=== PATIENT | female | born 1935 | race American Indian/Alaskan Native ===

== ENCOUNTER 2018-05-25 13:37 | Outpatient (CLI) | payer MEDICARE, MEDICAID ==
[~2018-05-25 13:37] MED LIST: BENZ-16 PO
[2018-05-25] MEDS ORDERED: LIDOcaine 1% 30ml preserv. free vial ONE (13:39)
[2018-05-25] MEDS ORDERED: LIDOcaine 1%/PF 5ML 10 MG/ML VIAL ONE (13:47)
[2018-05-25 14:02] VITALS: BP 165/79
== END 2018-05-25 15:00 | disposition home or self-care (01) ==
LOC: ORTHO 13:37
PROVIDERS: ATTEND Nurse Practitioner Family
DX: S52.532A Colles' fracture of left radius, initial encounter for closed fracture (principal)
CPT/HCPCS: 25600; 73110; 99214; J2001; J3490

== ENCOUNTER 2018-06-05 13:45 | Outpatient (CLI) | payer MEDICARE, MEDICAID ==
[2018-06-05 13:41] VITALS: BP 134/78
== END 2018-06-05 14:33 | disposition home or self-care (01) ==
LOC: ORTHO 13:45
PROVIDERS: ATTEND Nurse Practitioner Family
DX: S52.592G Other fractures of lower end of left radius, subsequent encounter for closed fracture with delayed healing (principal); S52.615G Nondisplaced fracture of left ulna styloid process, subsequent encounter for closed fracture with delayed healing; F17.210 Nicotine dependence, cigarettes, uncomplicated; W01.0XXD Fall on same level from slipping, tripping and stumbling without subsequent striking against object, subsequent encounter
CPT/HCPCS: 73110

== ENCOUNTER 2018-06-12 13:05 | Outpatient (CLI) | payer MEDICARE, MEDICAID ==
[2018-06-12 13:05] VITALS: BP 126/89
== END 2018-06-12 13:43 | disposition home or self-care (01) ==
LOC: ORTHO 13:05
PROVIDERS: ATTEND Nurse Practitioner Family
DX: S52.572G Other intraarticular fracture of lower end of left radius, subsequent encounter for closed fracture with delayed healing (principal); S52.692D Other fracture of lower end of left ulna, subsequent encounter for closed fracture with routine healing; F17.210 Nicotine dependence, cigarettes, uncomplicated; K21.9 Gastro-esophageal reflux disease without esophagitis; Z88.6 Allergy status to analgesic agent; Z88.8 Allergy status to other drugs, medicaments and biological substances; W01.0XXD Fall on same level from slipping, tripping and stumbling without subsequent striking against object, subsequent encounter
CPT/HCPCS: 73110; 99213

== ENCOUNTER 2018-06-19 15:29 | Outpatient (CLI) | payer MEDICARE, MEDICAID ==
[2018-06-19 15:28] VITALS: BP 151/83
== END 2018-06-19 16:13 | disposition home or self-care (01) ==
LOC: ORTHO 15:29
PROVIDERS: ATTEND Nurse Practitioner Family
DX: S52.592G Other fractures of lower end of left radius, subsequent encounter for closed fracture with delayed healing (principal); S52.612G Displaced fracture of left ulna styloid process, subsequent encounter for closed fracture with delayed healing; F17.210 Nicotine dependence, cigarettes, uncomplicated; K21.9 Gastro-esophageal reflux disease without esophagitis; Z79.82 Long term (current) use of aspirin; Z88.8 Allergy status to other drugs, medicaments and biological substances; W01.0XXD Fall on same level from slipping, tripping and stumbling without subsequent striking against object, subsequent encounter
CPT/HCPCS: 73110; 99213; A4590

== ENCOUNTER → 2018-07-03 15:00 | Outpatient (CLI) | payer MEDICARE, MEDICAID | END | disposition home or self-care (01) | LOC: ORTHO 15:00 | PROVIDERS: ATTEND Nurse Practitioner Family | DX: S52.592G Other fractures of lower end of left radius, subsequent encounter for closed fracture with delayed healing (principal); S52.692G Other fracture of lower end of left ulna, subsequent encounter for closed fracture with delayed healing; K21.9 Gastro-esophageal reflux disease without esophagitis; F17.210 Nicotine dependence, cigarettes, uncomplicated; Z88.6 Allergy status to analgesic agent; Z88.8 Allergy status to other drugs, medicaments and biological substances; W01.0XXD Fall on same level from slipping, tripping and stumbling without subsequent striking against object, subsequent encounter | CPT/HCPCS: 73110; 99213 ==

== ENCOUNTER 2018-07-26 13:58 | Outpatient (CLI) | payer MEDICARE, MEDICAID | END 2018-07-26 14:19 | disposition home or self-care (01) | LOC: ORTHO 13:58 | PROVIDERS: ATTEND Orthopaedic Surgery | DX: S52.592G Other fractures of lower end of left radius, subsequent encounter for closed fracture with delayed healing (principal); S52.692G Other fracture of lower end of left ulna, subsequent encounter for closed fracture with delayed healing; Z88.6 Allergy status to analgesic agent; Z88.8 Allergy status to other drugs, medicaments and biological substances; W01.0XXD Fall on same level from slipping, tripping and stumbling without subsequent striking against object, subsequent encounter | CPT/HCPCS: 73110; 99213 ==

== ENCOUNTER 2018-12-04 12:16 | Emergency (ER) | payer MEDICARE, MEDICAID ==
[~2018-12-04] VITALS: Ht 154.9 cm; Wt 85.0 kg
[2018-12-04 12:33] VITALS: BP 131/71
[2018-12-04] MEDS ORDERED: HYDR-4353 PO (13:38)
== END 2018-12-04 14:26 | disposition home or self-care (01) ==
LOC: ER 12:17
DX: S62.397A Other fracture of fifth metacarpal bone, left hand, initial encounter for closed fracture (principal); S62.395A Other fracture of fourth metacarpal bone, left hand, initial encounter for closed fracture; K21.9 Gastro-esophageal reflux disease without esophagitis; G89.29 Other chronic pain; Z88.6 Allergy status to analgesic agent; Z88.8 Allergy status to other drugs, medicaments and biological substances; Z79.899 Other long term (current) drug therapy; Z90.49 Acquired absence of other specified parts of digestive tract; Z98.890 Other specified postprocedural states; W01.0XXA Fall on same level from slipping, tripping and stumbling without subsequent striking against object, initial encounter; Y93.89 Activity, other specified; Y92.89 Other specified places as the place of occurrence of the external cause; Y99.8 Other external cause status
CPT/HCPCS: 29125; 73110; 99284

== ENCOUNTER 2018-12-28 11:50 | Outpatient (CLI) | payer MEDICARE, MEDICAID | END 2018-12-28 12:41 | disposition home or self-care (01) | LOC: ORTHO 11:50 | PROVIDERS: ATTEND Orthopaedic Surgery | DX: S62.395D Other fracture of fourth metacarpal bone, left hand, subsequent encounter for fracture with routine healing (principal); S62.397D Other fracture of fifth metacarpal bone, left hand, subsequent encounter for fracture with routine healing; Z87.891 Personal history of nicotine dependence; X58.XXXD Exposure to other specified factors, subsequent encounter | CPT/HCPCS: 73110; G0463 ==

== ENCOUNTER → 2019-09-30 | Emergency (ER) | payer MEDICARE, MEDICAID ==
[~2019-09-30] VITALS: Ht 180.3 cm; Wt 83.6 kg
[~2019-09-30] MED LIST changes: +CEPH500C5 PO; +MUPI22OI30 TP; +ZINC113C10 TOP; +mupirocin 2% cream 15gm TP SCH; +mupirocin 2% ointment 22GM TP ONE
[2019-09-30 08:23] VITALS: BP 128/54
== END | disposition home or self-care (01) ==
LOC: ER 08:20
DX: L97.828 Non-pressure chronic ulcer of other part of left lower leg with other specified severity (principal); L97.818 Non-pressure chronic ulcer of other part of right lower leg with other specified severity; L03.116 Cellulitis of left lower limb; L03.115 Cellulitis of right lower limb; K21.9 Gastro-esophageal reflux disease without esophagitis; F17.200 Nicotine dependence, unspecified, uncomplicated; G89.29 Other chronic pain; Z90.49 Acquired absence of other specified parts of digestive tract; Z98.890 Other specified postprocedural states; Z88.6 Allergy status to analgesic agent; Z88.8 Allergy status to other drugs, medicaments and biological substances; Z79.899 Other long term (current) drug therapy
CPT/HCPCS: 99283

== ENCOUNTER 2020-05-09 11:34 | Emergency (ER) | payer MEDICARE, MEDICAID ==
[~2020-05-09] VITALS: Ht 154.9 cm; Wt 80.9 kg
[~2020-05-09 11:34] MED LIST changes: -MUPI22OI30 TP; -mupirocin 2% cream 15gm TP SCH; -mupirocin 2% ointment 22GM TP ONE
[2020-05-09 13:06] LABS: BASOPHILS % (AUTO) 0.1 % (0-1); EOSINOPHILS % (AUTO) 0 % (0-6); HEMATOCRIT 34.7 % (35.0-45.0); HEMOGLOBIN 11.2 g/dl (12.0-16.0); LYMPHOCYTES # (AUTO) 0.3 X10'3 (1.1-4.8); LYMPHOCYTES % (AUTO) 2.3 % (21-51); MEAN CORPUSCULAR HEMOGLOBIN 27.7 PG (27.0-31.0); MEAN CORPUSCULAR HGB CONC 32.4 g/dL (33.0-36.5); MEAN CORPUSCULAR VOLUME 85.4 FL (78-98); MEAN PLATELET VOLUME 8.9 FL (7.4-10.4); MONOCYTES # (AUTO) 0.6 X10'3 (0-0.9); MONOCYTES % (AUTO) 4.2 % (2-12); NEUTROPHILS % (AUTO) 93.4 % (42-75); PLATELET COUNT 250 X10'3 (140-440); RED BLOOD COUNT 4.06 X10'6 (4.20-5.60); RED CELL DISTRIBUTION WIDTH 13.9 % (11.5-14.5)
--- NOTE | 2020-05-09 13:08 | NUR ---
[facility] [phone]
[2020-05-09 13:27] LABS: ALANINE AMINOTRANSFERASE 15 U/L (12-78); ALBUMIN 2.6 G/DL (3.4-5.0); ALBUMIN/GLOBULIN RATIO 0.5 (1.1-1.5); ALKALINE PHOSPHATASE 102 IU/L (46-116); ANION GAP 9 (8-16); ASPARTATE AMINO TRANSFERASE 19 U/L (10-37); BILIRUBIN,TOTAL 0.2 MG/DL (0.1-1.0); BLOOD UREA NITROGEN 21 MG/DL (7-18); BUN/CREATININE RATIO 12.9 (6.6-38.0); CHLORIDE 103 MMOL/L (99-107); CREATININE 1.63 MG/DL (0.40-0.90); GLUCOSE 139 MG/DL (70-104); POTASSIUM 4.7 MMOL/L (3.5-5.1); SODIUM 133 MMOL/L (135-145); TOTAL PROTEIN 7.9 G/DL (6.4-8.2); eGFR 30 ML/MIN
[2020-05-09 14:07] LABS: D-DIMER 0.94 MG/L FEU (0-0.50)
[2020-05-09 14:16] LABS: C-REACTIVE PROTEIN 4.23 MG/DL (0.0-0.5); FERRITIN 232 NG/ML (8-252); LACTATE DEHYDROGENASE 224 U/L (81-234)
[2020-05-09 14:39] VITALS: BP 144/88
== END 2020-05-09 14:44 | disposition left against medical advice (07) ==
LOC: ER 11:35
DX: U07.1 COVID-19 (principal); R06.02 Shortness of breath; R05 Cough; R06.2 Wheezing; K21.9 Gastro-esophageal reflux disease without esophagitis; Z87.01 Personal history of pneumonia (recurrent); Z90.89 Acquired absence of other organs; Z98.890 Other specified postprocedural states; Z88.8 Allergy status to other drugs, medicaments and biological substances; Z79.2 Long term (current) use of antibiotics; Z79.899 Other long term (current) drug therapy
CPT/HCPCS: 36415; 71045; 80053; 82728; 83615; 83880; 84145; 84484; 85025; 85379; 85384; 86140; 87635; 93005; 99285; C9803

== ENCOUNTER 2021-09-21 07:17 | Inpatient (IN) | payer MEDICARE, MEDICAID ==
[~2021-09-21] VITALS: Ht 154.9 cm; Wt 83.6 kg
[~2021-09-21 07:17] MED LIST changes: -CEPH500C5 PO
[2021-09-21] MEDS ORDERED: morphine 4 MG/ML inj SYRINge IV ONE (09:30)
[2021-09-21] MEDS ORDERED: ondansetron/PF 4mg/2ml inj IV ONE (09:30)
[2021-09-21 10:05] LABS: BASOPHILS % (AUTO) 0.2 % (0-1); EOSINOPHILS % (AUTO) 0.5 % (0-6); HEMATOCRIT 40.6 % (35.0-45.0); HEMOGLOBIN 13.2 g/dl (12.0-16.0); LYMPHOCYTES # (AUTO) 1.1 X10'3 (1.1-4.8); MEAN CORPUSCULAR HEMOGLOBIN 28.2 PG (27.0-31.0); MEAN CORPUSCULAR HGB CONC 32.4 g/dL (33.0-36.5); MEAN CORPUSCULAR VOLUME 86.8 FL (78-98); MEAN PLATELET VOLUME 10.2 FL (7.4-10.4); MONOCYTES # (AUTO) 0.5 X10'3 (0-0.9); MONOCYTES % (AUTO) 4.8 % (2-12); NEUTROPHILS # (AUTO) 8.6 X10'3 (1.8-7.7); NEUTROPHILS % (AUTO) 83.5 % (42-75); PLATELET COUNT 182 X10'3 (140-440); RED BLOOD COUNT 4.68 X10'6 (4.20-5.60); RED CELL DISTRIBUTION WIDTH 14.7 % (11.5-14.5); WHITE BLOOD COUNT 10.3 X10'3 (4.5-11.0)
[2021-09-21 10:11] LABS: APTT 27 SECONDS (22-32)
[2021-09-21 10:12] LABS: ALANINE AMINOTRANSFERASE 13 U/L (12-78); ALBUMIN 3.5 G/DL (3.4-5.0); ALBUMIN/GLOBULIN RATIO 0.8 (1.1-1.5); ALKALINE PHOSPHATASE 182 IU/L (46-116); ANION GAP 9 (8-16); ASPARTATE AMINO TRANSFERASE 16 U/L (10-37); BILIRUBIN,TOTAL 0.3 MG/DL (0.1-1.0); BLOOD UREA NITROGEN 37 MG/DL (7-18); BUN/CREATININE RATIO 17.1 (6.6-38.0); CALCIUM 8.4 MG/DL (8.5-10.1); CHLORIDE 107 MMOL/L (99-107); CREATININE 2.16 MG/DL (0.40-0.90); POTASSIUM 5.4 MMOL/L (3.5-5.1); SODIUM 139 MMOL/L (135-145); eGFR 22 ML/MIN
[2021-09-21 10:18] LABS: GLUCOSE 118 MG/DL (70-104)
[2021-09-21] MEDS ORDERED: acetaminophen 325mg tablet PO PRN (11:05)
[2021-09-21] MEDS ORDERED: magnesium hydroxide 30ml (MOM) UD suspension PO PRN (11:05)
[2021-09-21] MEDS ORDERED: ondansetron/PF 4mg/2ml inj IV PRN (11:05)
[2021-09-21] MEDS ORDERED: mag hydrox/Alum hydrox/simeth 30ml oral suspension PO PRN (11:05)
[2021-09-21] MEDS ORDERED: hydrALAZINE 20mg/ml inj. IV PRN (11:35)
[2021-09-21] MEDS ORDERED: FURO20TA4 PO (11:50)
[2021-09-21] MEDS ORDERED: LISI5TAB22 PO (11:51)
[2021-09-21] MEDS ORDERED: FLUT16SP2 BOTHNARES (11:56)
[2021-09-21] MEDS ORDERED: CETI-90 PO (11:56)
[2021-09-21] MEDS ORDERED: LEVO50TA8 PO (11:56)
[2021-09-21] MEDS ORDERED: OMEP20TA43 PO (11:56)
[2021-09-21] MEDS: normal saline 1000ml 1,000 ML IV SCH ×2 (12:00→22:09)
[2021-09-21 13:50] LABS: CLARITY,URINE CLEAR (Clear); COLOR,URINE YELLOW (Yellow); GLUCOSE, URINE NEGATIVE (Neg); KETONES,URINE NEGATIVE (Neg); LEUKOCYTE ESTERASE ,URINE NEGATIVE (Neg); NITRITES, URINE NEGATIVE (Neg); OCCULT BLOOD,URINE TRACE-INTACT (Neg); PROTEIN,URINE TRACE mg/dl (Neg); UROBILINOGEN,URINE 0.2 E.U/dL (0.2-1.0)
[2021-09-21 13:52] LABS: UA COLLECTION TYPE FOLEY CATH
[2021-09-21 13:56] LABS: BACTERIA,URINE 1+ /HPF (Neg); MUCUS STRANDS NONE SEEN /LPF (Neg); RBC,URINE 0-2 /HPF (0-2); SQUAMOUS EPITHELIAL CELL,UR FEW /LPF (FEW); WBC,URINE 0-4 /HPF (0-4)
[2021-09-21] MEDS: morphine 2 MG/ML inj. syringe IV PRN (19:19)
[2021-09-21 19:46] VITALS: BP 115/55
[2021-09-21] MEDS: docusate sod 100mg capsule PO SCH (20:06)
[2021-09-21 22:00] VITALS: BP 113/65
[2021-09-22] VITALS (25 sets, daily range): BP systolic 98–131; BP diastolic 39–70
[2021-09-22] MEDS: morphine 2 MG/ML inj. syringe IV PRN ×3 (01:39→17:25)
--- NOTE | 2021-09-22 06:15 | NUR ---
Problems reprioritized. Patient report given, questions answered & plan of care reviewed with PAUL MEEHAN.
--- NOTE | 2021-09-22 06:31 | NUR ---
Patient in room ORTHO 4012. I have received report from Elise MILLER and had the opportunity to ask questions and assume patient care.
[2021-09-22 06:54] LABS: BASOPHILS % (AUTO) 0.3 % (0-1); EOSINOPHILS % (AUTO) 0.4 % (0-6); HEMATOCRIT 36.2 % (35.0-45.0); HEMOGLOBIN 11.7 g/dl (12.0-16.0); LYMPHOCYTES # (AUTO) 1.2 X10'3 (1.1-4.8); LYMPHOCYTES % (AUTO) 13.2 % (21-51); MEAN CORPUSCULAR HEMOGLOBIN 28.4 PG (27.0-31.0); MEAN CORPUSCULAR HGB CONC 32.4 g/dL (33.0-36.5); MEAN CORPUSCULAR VOLUME 87.6 FL (78-98); MEAN PLATELET VOLUME 10.5 FL (7.4-10.4); MONOCYTES # (AUTO) 0.8 X10'3 (0-0.9); MONOCYTES % (AUTO) 8.3 % (2-12); NEUTROPHILS # (AUTO) 7.3 X10'3 (1.8-7.7); NEUTROPHILS % (AUTO) 77.8 % (42-75); PLATELET COUNT 154 X10'3 (140-440); RED BLOOD COUNT 4.13 X10'6 (4.20-5.60); RED CELL DISTRIBUTION WIDTH 14.8 % (11.5-14.5); WHITE BLOOD COUNT 9.4 X10'3 (4.5-11.0)
[2021-09-22 07:26] LABS: ANION GAP 11 (8-16); BLOOD UREA NITROGEN 33 MG/DL (7-18); BUN/CREATININE RATIO 17.1 (6.6-38.0); CALCIUM 8.2 MG/DL (8.5-10.1); CHLORIDE 112 MMOL/L (99-107); CREATININE 1.93 MG/DL (0.40-0.90); GLUCOSE 105 MG/DL (70-104); POTASSIUM 5.6 MMOL/L (3.5-5.1); SODIUM 143 MMOL/L (135-145); TOTAL CARBON DIOXIDE 19.8 MMOL/L (24-32); eGFR 25 ML/MIN
[2021-09-22] MEDS: levoTHYROXINE 100mcg tablet PO SCH (07:42)
[2021-09-22] MEDS: cetirizine 10mg tablet PO SCH (07:43)
[2021-09-22] MEDS: docusate sod 100mg capsule PO SCH ×2 (07:43→19:34)
[2021-09-22] MEDS: pantoprazole 40mg Tablet.DR PO SCH (07:43)
[2021-09-22] MEDS: normal saline 1000ml 1,000 ML IV SCH ×2 (07:54→17:26)
[2021-09-22] MEDS ORDERED: enoxaparin 40mg/0.4ml syringe SUBCUT SCH ×2 (08:00→20:00)
[2021-09-22] MEDS ORDERED: non-formulary drug (Fluticasone Propionate (Flonase) 2 SPRAYS) BOTHNARES SCH (08:00)
[2021-09-22] MEDS ORDERED: sodium polystyrene sulfonate 15gm/60ml oral suspension PO ONE (08:10)
[2021-09-22] MEDS ORDERED: ROPIVAcaine 0.5% (5mg/ml) 30ml vial ONE (08:41)
[2021-09-22] MEDS ORDERED: cloNIDine hcl/PF 100mcg/ml inj ONE (08:41)
[2021-09-22] MEDS ORDERED: epiNEPHrine 1 mg/ml inj ONE (08:41)
[2021-09-22] MEDS ORDERED: vancomycin 1,000mg inj ONE (08:41)
[2021-09-22] MEDS ORDERED: ketorolac trometh. 30mg/ml inj. ONE (08:42)
[2021-09-22] MEDS ORDERED: ringers solution, lacted 1,000 ML IV SCH (08:50)
[2021-09-22] MEDS ORDERED: labetalol 20mg/4ml (5mg/ml) syringe IV PRN (08:50)
[2021-09-22] MEDS ORDERED: morphine 2 MG/ML inj. syringe IV PRN (08:50)
[2021-09-22] MEDS ORDERED: morphine 4 MG/ML inj SYRINge IV PRN (08:50)
[2021-09-22] MEDS ORDERED: ondansetron/PF 4mg/2ml inj IV PRN (08:50)
[2021-09-22] MEDS ORDERED: hydrALAZINE 20mg/ml inj. IV PRN (08:50)
[2021-09-22] MEDS ORDERED: fentaNYL/PF 50MCG/1 ML 2ML syringe IV PRN ×2 (08:50)
[2021-09-22] MEDS ORDERED: etomidate 2mg/ml inj. ONE ×2 (08:51→09:14)
[2021-09-22] MEDS ORDERED: ondansetron/PF 4mg/2ml inj ONE (08:52)
[2021-09-22] MEDS ORDERED: dexamethasone sod phosphate 4mg/ml inj. ONE (08:52)
[2021-09-22] MEDS ORDERED: succinylcholine 20mg/ml inj IV ONE (08:52)
--- NOTE | 2021-09-22 09:10 | NUR ---
Problems reprioritized. Patient report given, questions answered & plan of care reviewed with Marina in OR.
[2021-09-22] MEDS ORDERED: ceFAZolin 2gm in dextrose, iso 2,000 MG/50 ML BAG IV ONE (09:14)
[2021-09-22] MEDS ORDERED: PHENYLephrine 10mg/ml 5ml injection IV ONE (09:14)
[2021-09-22] MEDS ORDERED: sevoflurane 250ml liquid IH ONE (09:14)
[2021-09-22] MEDS ORDERED: rocuronium 10mg/ml inj IV ONE (09:14)
[2021-09-22] MEDS ORDERED: tranexamic acid 100mg/ml inj. ONE (09:21)
[2021-09-22] MEDS ORDERED: fentaNYL/PF 50MCG/1 ML 2ML syringe ONE (09:25)
[2021-09-22] MEDS ORDERED: glycopyrrolate 0.2mg/ml inj ONE (09:57)
[2021-09-22] MEDS ORDERED: neostigmine methylsulfate 1 MG/ML 10ml vial ONE (09:57)
--- NOTE | 2021-09-22 11:17 | NUR ---
Received from OR via HOSPITAL BED, accompanied by Anesthesiologist DEAN and report given by Anesthesiolgist AND CHARGEMASTER ANALYST. PT ARRIVES DROWSY BUT RESPONDS TO PHYSICAL TOUCH. ARRIVES WITH SIMPLE MASK AT 100% SPO2. DENIES PAIN, NAD. DRESSING TO LEFT HIP CLEAN DRY AND INTACT. SCD'S ON. Addendum: 09/22/21 at 1126 by Onel Breen RN Amended: Links added.
--- NOTE | 2021-09-22 13:27 | NUR ---
Report called to receiving nurse ZORAN MILLER. Transferred via HOSPITAL BED Belongings WITH FAMILY MEMBER AND DELIVERED BY THEM TO ROOM [facility]. PT CALL LIGHT WITHIN REACH, UNDERSTANDS ITS USE. VSS, 104/57, 97% 2L NC, HR 94, 16 RR. BED LOW, FAMILY AT BEDSIDE UPDATED ON PLAN OF CARE. ORTHO/NEURO RN NOTIFIED OF PT'S DELIVERY TO ROOM. Addendum: 09/22/21 at 1353 by Onel Breen RN Amended: Links added.
[2021-09-22] MEDS ORDERED: enoxaparin 30mg/0.3ml syringe SUBCUT SCH (15:59)
--- NOTE | 2021-09-22 18:26 | NUR ---
Problems reprioritized. Patient report given, questions answered & plan of care reviewed with Sade Stuart RN.
--- NOTE | 2021-09-22 18:30 | NUR ---
Patient in room ORTHO 4012. I have received report from ZORAN MILLER and had the opportunity to ask questions and assume patient care.
[2021-09-23] MEDS: cefazolin/dext.iso 2gm/100ml 100 ML IV SCH ×2 (00:20→07:17)
[2021-09-23 02:00] VITALS: BP 111/40
[2021-09-23] MEDS: normal saline 1000ml 1,000 ML IV SCH (04:41)
[2021-09-23] MEDS: HYDROcodone/acetaminophen 10/325mg tab PO PRN ×3 (05:48→21:06)
--- NOTE | 2021-09-23 06:20 | NUR ---
Problems reprioritized. Patient report given, questions answered & plan of care reviewed with STEFAN MILLER.
--- NOTE | 2021-09-23 06:23 | NUR ---
Received patient report from Sade Stuart RN.
[2021-09-23 06:25] VITALS: BP 108/51
[2021-09-23 07:11] LABS: BASOPHILS % (AUTO) 0.1 % (0-1); EOSINOPHILS % (AUTO) 0 % (0-6); HEMATOCRIT 32.1 % (35.0-45.0); HEMOGLOBIN 10.1 g/dl (12.0-16.0); LYMPHOCYTES # (AUTO) 1.1 X10'3 (1.1-4.8); LYMPHOCYTES % (AUTO) 7.3 % (21-51); MEAN CORPUSCULAR HEMOGLOBIN 28.2 PG (27.0-31.0); MEAN CORPUSCULAR HGB CONC 31.6 g/dL (33.0-36.5); MEAN CORPUSCULAR VOLUME 89.1 FL (78-98); MEAN PLATELET VOLUME 10.5 FL (7.4-10.4); MONOCYTES # (AUTO) 1.3 X10'3 (0-0.9); NEUTROPHILS # (AUTO) 12.3 X10'3 (1.8-7.7); NEUTROPHILS % (AUTO) 83.6 % (42-75); PLATELET COUNT 118 X10'3 (140-440); RED CELL DISTRIBUTION WIDTH 15.1 % (11.5-14.5); WHITE BLOOD COUNT 14.7 X10'3 (4.5-11.0)
[2021-09-23 07:24] LABS: ALBUMIN 2.9 G/DL (3.4-5.0); ANION GAP 8 (8-16); BLOOD UREA NITROGEN 29 MG/DL (7-18); BUN/CREATININE RATIO 15.3 (6.6-38.0); CALCIUM 7.9 MG/DL (8.5-10.1); CHLORIDE 114 MMOL/L (99-107); GLUCOSE 112 MG/DL (70-104); POTASSIUM 5.2 MMOL/L (3.5-5.1); SODIUM 139 MMOL/L (135-145); TOTAL CARBON DIOXIDE 17.2 MMOL/L (24-32); eGFR 25 ML/MIN
[2021-09-23] MEDS: pantoprazole 40mg Tablet.DR PO SCH (07:46)
[2021-09-23] MEDS: docusate sod 100mg capsule PO SCH ×2 (07:46→21:05)
[2021-09-23] MEDS: cetirizine 10mg tablet PO SCH (07:46)
[2021-09-23] MEDS: levoTHYROXINE 100mcg tablet PO SCH (07:49)
[2021-09-23 10:00] VITALS: BP 103/42
[2021-09-23] MEDS: sodium bicarbonate (8.4%) inj. 100 MEQ in dextrose 5%-water 1,000 ML IV SCH (12:38)
--- NOTE | 2021-09-23 13:55 | NUR ---
PAGER ID: [phone] MESSAGE: [id number] has COPD, exertional shortness of breath while working with physical therapy with tachycardia and hypotension. Resting in chair now but patient states she uses inhalers at home. Can I get breathing treatments? rigo [id number]
--- NOTE | 2021-09-23 13:59 | NUR ---
Patient got up with physical therapy and was tachycardic, hypotensive and had associated shortness of breath. Patient placed in recliner chair and stated she felt like she was going to pass out. Patient does not endorse COPD history but does use inhalers at home, placed page to MD for breathing treatments and respiratory eval and treat, orders received and respiratory paged.
[2021-09-23] MEDS: albuterol 2.5 MG/3 ML nebule NEB PRN (14:57)
--- NOTE | 2021-09-23 17:58 | NUR ---
PAGER ID: [phone] MESSAGE: [id number] [place] patient pulled out IV, tried x4 to get a new one patient is refusing one at this time can i get an order for no IV? rigo [id number]
[2021-09-23 18:00] VITALS: BP 92/47
--- NOTE | 2021-09-23 18:26 | NUR ---
This RN agrees with [employer]
--- NOTE | 2021-09-23 18:32 | NUR ---
Patient report was given to Sade Stuart RN.
--- NOTE | 2021-09-23 18:35 | NUR ---
Patient in room ORTHO 4012. I have received report from STEFAN MILLER and had the opportunity to ask questions and assume patient care.
[2021-09-23 22:00] VITALS: BP 114/48
--- NOTE | 2021-09-24 05:00 | NUR ---
PATIENT HAS NOT VOIDED YET. BLADDER SCAN DONE WITH 329ML OF URINE IN THE BLADDER. PATIENT HAS NO DISCOMFORT AT THIS TIME AND SAID SHE DON'T FEEL YET OF NEEDING TO PEE AND IF SHE IS READY SHE WILL PEE.
[2021-09-24] MEDS: sodium bicarbonate (8.4%) inj. 100 MEQ in dextrose 5%-water 1,000 ML IV SCH (05:25)
--- NOTE | 2021-09-24 06:30 | NUR ---
Problems reprioritized. Patient report given, questions answered & plan of care reviewed with STEFNA MILLER.
--- NOTE | 2021-09-24 06:45 | NUR ---
Received patient report from Sade Stuart RN.
[2021-09-24 07:04] LABS: BASOPHILS % (AUTO) 0.1 % (0-1); EOSINOPHILS % (AUTO) 0.2 % (0-6); HEMATOCRIT 28.8 % (35.0-45.0); HEMOGLOBIN 9.5 g/dl (12.0-16.0); LYMPHOCYTES # (AUTO) 1.5 X10'3 (1.1-4.8); LYMPHOCYTES % (AUTO) 13.9 % (21-51); MEAN CORPUSCULAR HEMOGLOBIN 28.5 PG (27.0-31.0); MEAN CORPUSCULAR HGB CONC 32.9 g/dL (33.0-36.5); MEAN CORPUSCULAR VOLUME 86.7 FL (78-98); MEAN PLATELET VOLUME 10.7 FL (7.4-10.4); MONOCYTES # (AUTO) 0.9 X10'3 (0-0.9); MONOCYTES % (AUTO) 8.2 % (2-12); NEUTROPHILS # (AUTO) 8.3 X10'3 (1.8-7.7); NEUTROPHILS % (AUTO) 77.6 % (42-75); PLATELET COUNT 104 X10'3 (140-440); RED BLOOD COUNT 3.32 X10'6 (4.20-5.60); RED CELL DISTRIBUTION WIDTH 14.3 % (11.5-14.5); WHITE BLOOD COUNT 10.7 X10'3 (4.5-11.0)
[2021-09-24 07:20] LABS: ALBUMIN 2.7 G/DL (3.4-5.0); ANION GAP 8 (8-16); BLOOD UREA NITROGEN 31 MG/DL (7-18); BUN/CREATININE RATIO 15.6 (6.6-38.0); CALCIUM 7.7 MG/DL (8.5-10.1); CHLORIDE 105 MMOL/L (99-107); CREATININE 1.99 MG/DL (0.40-0.90); GLUCOSE 108 MG/DL (70-104); POTASSIUM 4.3 MMOL/L (3.5-5.1); SODIUM 134 MMOL/L (135-145); TOTAL CARBON DIOXIDE 20.9 MMOL/L (24-32); eGFR 24 ML/MIN
[2021-09-24] MEDS: levoTHYROXINE 100mcg tablet PO SCH (07:53)
[2021-09-24] MEDS: cetirizine 10mg tablet PO SCH (07:53)
[2021-09-24] MEDS: HYDROcodone/acetaminophen 10/325mg tab PO PRN ×3 (07:54→22:13)
[2021-09-24] MEDS: docusate sod 100mg capsule PO SCH ×2 (07:54→19:23)
[2021-09-24] MEDS: pantoprazole 40mg Tablet.DR PO SCH (07:54)
[2021-09-24] MEDS: albuterol 2.5 MG/3 ML nebule NEB PRN (08:09)
--- NOTE | 2021-09-24 09:02 | NUR ---
Per retail shift manager patient had 327 mls in bladder on bladder scan at 0500
[2021-09-24] MEDS ORDERED: aspirin 81mg, enteric-coated 1 TAB TABLET.DR PO SCH (09:35)
[2021-09-24 10:00] VITALS: BP 97/44
[2021-09-24] MEDS: rivaroxaban 10mg tablet PO SCH (11:12)
[2021-09-24] MEDS ORDERED: albuterol 2.5 MG/3 ML nebule NEB SCH (12:00)
[2021-09-24] MEDS: albuterol 2.5 MG/3 ML nebule NEB SCH ×3 (14:28→22:50)
[2021-09-24 18:00] VITALS: BP 106/63
--- NOTE | 2021-09-24 18:31 | NUR ---
Patient report given, questions answered & plan of care reviewed with PAUL Farrell.
[2021-09-24 22:00] VITALS: BP 119/91
[2021-09-25] MEDS: albuterol 2.5 MG/3 ML nebule NEB SCH ×7 (02:32→22:59)
--- NOTE | 2021-09-25 06:03 | NUR ---
Problems reprioritized. Patient report given, questions answered & plan of care reviewed with Norah MILLER.
[2021-09-25 06:19] VITALS: BP 95/47
--- NOTE | 2021-09-25 06:20 | NUR ---
Received report from PAUL Farrell
--- NOTE | 2021-09-25 07:01 | NUR ---
PAGER ID: [phone] MESSAGE: [id number], [place] patients heart rate resting is 116, SOB, persistent low bp. Chest x-ray when she came in showed opacifcation in right lower lobe. Can i get a chest x-ray and a lactic to make sure she isnt septic? thanks rigo [id number]
[2021-09-25] MEDS ORDERED: PERFLUTREN PROTEIN-A MICROSPHR (Optison) 0.22 MG/ML 3ML VIAL IV ONE (07:10)
--- NOTE | 2021-09-25 07:20 | NUR ---
PAGER ID: [phone] MESSAGE: [id number], [place] heart rate on pulse ox is bouncing from 112-130s, getting EKG now to see what rhythm she is in. Can i get tele? rigo [phone]
[2021-09-25 07:43] LABS: BASOPHILS % (AUTO) 0.2 % (0-1); EOSINOPHILS # (AUTO) 0.1 X10'3 (0-0.9); EOSINOPHILS % (AUTO) 0.6 % (0-6); HEMATOCRIT 28.9 % (35.0-45.0); HEMOGLOBIN 9.4 g/dl (12.0-16.0); LYMPHOCYTES # (AUTO) 1.1 X10'3 (1.1-4.8); LYMPHOCYTES % (AUTO) 10.8 % (21-51); MEAN CORPUSCULAR HEMOGLOBIN 28.2 PG (27.0-31.0); MEAN CORPUSCULAR HGB CONC 32.6 g/dL (33.0-36.5); MEAN CORPUSCULAR VOLUME 86.6 FL (78-98); MEAN PLATELET VOLUME 10.5 FL (7.4-10.4); MONOCYTES # (AUTO) 0.9 X10'3 (0-0.9); MONOCYTES % (AUTO) 8.5 % (2-12); NEUTROPHILS % (AUTO) 79.9 % (42-75); PLATELET COUNT 115 X10'3 (140-440); RED BLOOD COUNT 3.34 X10'6 (4.20-5.60); RED CELL DISTRIBUTION WIDTH 14.5 % (11.5-14.5)
[2021-09-25 07:47] LABS: ALBUMIN 2.4 G/DL (3.4-5.0); ANION GAP 7 (8-16); BLOOD UREA NITROGEN 34 MG/DL (7-18); BUN/CREATININE RATIO 16.1 (6.6-38.0); CALCIUM 7.5 MG/DL (8.5-10.1); CHLORIDE 105 MMOL/L (99-107); CREATININE 2.11 MG/DL (0.40-0.90); GLUCOSE 101 MG/DL (70-104); POTASSIUM 4.5 MMOL/L (3.5-5.1); SODIUM 133 MMOL/L (135-145); TOTAL CARBON DIOXIDE 21.3 MMOL/L (24-32); eGFR 22 ML/MIN
[2021-09-25 08:16] LABS: LARGE PLATELETS FEW; PLATELET ESTIMATE DECREASED
[2021-09-25] MEDS: rivaroxaban 10mg tablet PO SCH (08:39)
[2021-09-25] MEDS: cetirizine 10mg tablet PO SCH (08:39)
[2021-09-25] MEDS: docusate sod 100mg capsule PO SCH ×2 (08:39→19:43)
[2021-09-25] MEDS: levoTHYROXINE 100mcg tablet PO SCH (08:39)
[2021-09-25] MEDS: pantoprazole 40mg Tablet.DR PO SCH (08:39)
[2021-09-25] MEDS: HYDROcodone/acetaminophen 5mg/325mg tablet PO PRN ×2 (08:42→12:48)
--- NOTE | 2021-09-25 09:18 | NUR ---
burst of sinus tach 160-180s while patient was coughing, informed MD order for 500 ml bolus of normal saline
[2021-09-25] MEDS ORDERED: normal saline 500ml IV soln 500 ML IV ONE (09:20)
--- NOTE | 2021-09-25 10:26 | NUR ---
resting heart rate after bolus 92 no s/s of fluid overload
[2021-09-25 11:06] VITALS: BP 105/46
--- NOTE | 2021-09-25 13:45 | NUR ---
PAGER ID: [phone] MESSAGE: [id number], VQ scan done, report in [facility]. Heart rate and blood pressure both better 105/46 heart rate 96 after bolus. thanks! rigo [phone]
[2021-09-25 18:00] VITALS: BP 101/50
--- NOTE | 2021-09-25 18:48 | NUR ---
report given to PAUL Bullock
[2021-09-25 22:00] VITALS: BP 110/47
[2021-09-26] MEDS: cefepime 1GM/NS ADD-VANTAGE 100 ML IV SCH ×2 (00:09→08:57)
[2021-09-26] MEDS: HYDROcodone/acetaminophen 10/325mg tab PO PRN ×3 (00:12→10:01)
[2021-09-26] MEDS: albuterol 2.5 MG/3 ML nebule NEB SCH ×2 (02:58→07:08)
[2021-09-26 06:00] VITALS: BP 114/58
[2021-09-26 06:30] LABS: BASOPHILS % (AUTO) 0.2 % (0-1); EOSINOPHILS # (AUTO) 0.1 X10'3 (0-0.9); EOSINOPHILS % (AUTO) 1.4 % (0-6); HEMATOCRIT 27.7 % (35.0-45.0); HEMOGLOBIN 9.1 g/dl (12.0-16.0); LYMPHOCYTES # (AUTO) 1.3 X10'3 (1.1-4.8); LYMPHOCYTES % (AUTO) 13.7 % (21-51); MEAN CORPUSCULAR HEMOGLOBIN 28.5 PG (27.0-31.0); MEAN CORPUSCULAR VOLUME 86.2 FL (78-98); MEAN PLATELET VOLUME 10.7 FL (7.4-10.4); MONOCYTES # (AUTO) 0.9 X10'3 (0-0.9); MONOCYTES % (AUTO) 9.2 % (2-12); NEUTROPHILS # (AUTO) 7.2 X10'3 (1.8-7.7); NEUTROPHILS % (AUTO) 75.5 % (42-75); PLATELET COUNT 126 X10'3 (140-440); RED BLOOD COUNT 3.21 X10'6 (4.20-5.60); RED CELL DISTRIBUTION WIDTH 14.7 % (11.5-14.5); WHITE BLOOD COUNT 9.6 X10'3 (4.5-11.0)
--- NOTE | 2021-09-26 06:32 | NUR ---
Problems reprioritized. Patient report given, questions answered & plan of care reviewed with PAUL Kim.
[2021-09-26 06:50] LABS: ALBUMIN 2.4 G/DL (3.4-5.0); ANION GAP 8 (8-16); BLOOD UREA NITROGEN 33 MG/DL (7-18); BUN/CREATININE RATIO 16.3 (6.6-38.0); CALCIUM 7.9 MG/DL (8.5-10.1); CHLORIDE 104 MMOL/L (99-107); CREATININE 2.02 MG/DL (0.40-0.90); GLUCOSE 98 MG/DL (70-104); POTASSIUM 4.5 MMOL/L (3.5-5.1); SODIUM 132 MMOL/L (135-145); TOTAL CARBON DIOXIDE 20.2 MMOL/L (24-32); eGFR 23 ML/MIN
[2021-09-26] MEDS: docusate sod 100mg capsule PO SCH (08:54)
[2021-09-26] MEDS: rivaroxaban 10mg tablet PO SCH (08:54)
[2021-09-26] MEDS: levoTHYROXINE 100mcg tablet PO SCH (08:55)
[2021-09-26] MEDS: pantoprazole 40mg Tablet.DR PO SCH (08:56)
[2021-09-26] MEDS: cetirizine 10mg tablet PO SCH (08:56)
--- NOTE | 2021-09-26 10:25 | NUR ---
Patient transferred to [facility]. IV taken out, all belongings taken from room. Pt stable and appropriate for rehab. Tele dc'd.
== END 2021-09-26 10:25 | DRG 521 ==
LOC: ER 07:18 → ED HOLD 11:05 → ORTHO 4S 19:30
PROVIDERS: ADMIT Family Medicine; ATTEND Family Medicine
PROC: 0SRS0JZ Replacement of Left Hip Joint, Femoral Surface with Synthetic Substitute, Open Approach (ICD-10-PCS; principal; 2021-09-22 09:14)
PROC: CB121ZZ Planar Nuclear Medicine Imaging of Lungs and Bronchi using Technetium 99m (Tc-99m) (ICD-10-PCS; 2021-09-25)
DX: S72.002A Fracture of unspecified part of neck of left femur, initial encounter for closed fracture (principal); J18.9 Pneumonia, unspecified organism; E87.2 Acidosis; N17.9 Acute kidney failure, unspecified; E03.9 Hypothyroidism, unspecified; F17.210 Nicotine dependence, cigarettes, uncomplicated; W01.0XXA Fall on same level from slipping, tripping and stumbling without subsequent striking against object, initial encounter; G89.29 Other chronic pain; J44.9 Chronic obstructive pulmonary disease, unspecified; K21.9 Gastro-esophageal reflux disease without esophagitis; Z20.822 Contact with and (suspected) exposure to COVID-19; I12.9 Hypertensive chronic kidney disease with stage 1 through stage 4 chronic kidney disease, or unspecified chronic kidney disease; N18.9 Chronic kidney disease, unspecified; M54.9 Dorsalgia, unspecified; E87.5 Hyperkalemia; I95.9 Hypotension, unspecified; R00.0 Tachycardia, unspecified; Z90.49 Acquired absence of other specified parts of digestive tract; Y93.89 Activity, other specified; Y92.098 Other place in other non-institutional residence as the place of occurrence of the external cause; Y99.8 Other external cause status; Z88.8 Allergy status to other drugs, medicaments and biological substances; Z87.01 Personal history of pneumonia (recurrent); Z79.899 Other long term (current) drug therapy
CPT/HCPCS: 36415; 70450; 71045; 72170; 73502; 73560; 78582; 80048; 80053; 81001; 82948; 84443; 85008; 85025; 85610; 85730; 86885; 86900; 86901; 87081; 93005; 93306; 94640; 94760; 96374; 96375; 97110; 97116; 97162; 97530; 99285; A4314; A4615; A6258; A6449; A6454; A7000; A9272; A9539; A9540; C1713; C1776; G0378; J0171; J0330; J0690; J0692; J0735; J1100; J1650; J1885; J2270; J2370; J2405; J2710; J2795; J3010; J3370; J3490; J7030; J7040; J7070; J7120